=== PATIENT | male | born 1965 | race Caucasian/White ===

== ENCOUNTER 2020-12-06 23:27 | Observation (INO) ==
[2020-12-07] MEDS ORDERED: Ipratropium/Albuterol Neb 3 ML IH ONE (01:13)
[2020-12-07] MEDS ORDERED: *HR* HYDROcodone/Acet 5/325 mg TABLET PO ONE (01:21)
[2020-12-07] MEDS ORDERED: 0.9 % Sodium Chloride 1,000 ML IVC ONE (01:23)
[2020-12-07 01:24] LABS: INR 1.1; Prothrombin Time 13.2 Seconds (9.4-12.1)
[2020-12-07 01:27] LABS: Activated Partial Thrombo Time 30.7 Seconds (26.0-36.0)
[2020-12-07 01:38] LABS: Bilirubin,Urine Negative (Negative); Blood,Urine Trace (Negative); Clarity,Urine Turbid (Clear); Color,Urine Yellow (Yellow); Glucose,Urine (UA) Normal (Normal); Hyaline Casts,Urine Few per lpf (None Seen); Ketones,Urine Negative (Negative); Leukocyte Esterase,Urine Negative (Negative); Mucus,Urine Many per lpf (None-Few); Nitrite,Urine Negative (Negative); PH,Urine 5.5 pH Units (5.0-8.0); Protein,Urine Trace mg/dL (Neg-Trace); RBC,Urine 0-3 per hpf (0-3); Specific Gravity,Urine 1.023 (1.010-1.025); Squamous Epithelial Cell,Urine Few per hpf (None-Few); Urobilinogen,Urine Normal (Normal); WBC,Urine 0-3 per hpf (0-3)
[2020-12-07 02:23] LABS: Adenovirus Not Detected (Not Detect); Bordetella Pertussis Not Detected (Not Detect); Chlamydophila pneumoniae Not Detected (Not Detect); Coronavirus 229E Not Detected (Not Detect); Coronavirus HKU1 Not Detected (Not Detect); Coronavirus NL63 Not Detected (Not Detect); Coronavirus OC43 Not Detected (Not Detect); Human Metapneumovirus Not Detected (Not Detect); Human Rhinovirus/Enterovirus DETECTED (Not Detect); Influenza A Subtype 2009 H1 Not Detected (Not Detect); Influenza B Not Detected (Not Detect); Mycoplasma pneumoniae Not Detected (Not Detect); Parainfluenza Virus 1 Not Detected (Not Detect); Parainfluenza Virus 2 Not Detected (Not Detect); Parainfluenza Virus 3 Not Detected (Not Detect); Parainfluenza Virus 4 Not Detected (Not Detect); Respiratory Syncytial Virus Not Detected (Not Detect); SARS-CoV-2 Not Detected (Not Detect)
[2020-12-07] MEDS ORDERED: Naloxone 0.4 MG/ML INJ IVP PRN (03:38)
[2020-12-07] MEDS ORDERED: Ondansetron 4 MG/2 ML VIAL IVP PRN (03:38)
[2020-12-07] MEDS ORDERED: Melatonin 3 MG TABLET PO PRN (03:38)
[2020-12-07 05:48] LABS: Basophils # 0.1 K/mcL (0.0-0.2); Basophils % 0.5 %; Eosinophils # 0.8 K/mcL (0.0-0.6); Eosinophils % 6.9 %; Hematocrit 37.9 % (37.5-50.1); Hemoglobin 12.5 g/dL (12.9-16.9); Immature Granulocytes % 0.4 % (0-4); Lymphocytes # 2.2 K/mcL (0.6-4.6); Lymphocytes % 19.2 %; Mean Corpuscular Hemoglobin 29.8 pg (28.0-33.3); Mean Corpuscular Volume 90.2 fL (83.0-100.0); Mean Platelet Volume 9.8 fL (9.4-12.4); Monocytes # 0.8 K/mcL (0.0-1.3); Monocytes % 7.1 %; Neutrophils # 7.5 K/mcL (1.6-8.9); Platelet Count 442 K/mcL (140-400); Red Cell Distribution Width 13.6 % (11.5-14.5); Segmented Neutrophils % 65.9 %; White Blood Count 11.4 K/mcL (4.3-11.1)
[2020-12-07 05:55] LABS: INR 1.1
[2020-12-07 05:58] LABS: Activated Partial Thrombo Time 29.5 Seconds (26.0-36.0)
[2020-12-07 06:16] LABS: Alanine Aminotransferase 15 Units/L (7-52); Albumin 3.3 g/dL (3.5-5.7); Alkaline Phosphatase 67 Units/L (34-104); Aspartate Amino Transferase 13 Units/L (13-39); BUN/Creatinine Ratio 19 (6-26); Bilirubin,Total 0.6 mg/dL (0.3-1.0); Blood Urea Nitrogen 19 mg/dL (6-20); Calcium 8.5 mg/dL (8.6-10.3); Carbon Dioxide 24 mEq/L (23-29); Chloride 107 mEq/L (98-107); Globulin 3.4 g/dL (2.4-3.5); Glucose 119 mg/dL (70-105); Magnesium 2.2 mg/dL (1.6-2.6); Osmolality,Calculated 289 (280-300); Potassium 3.7 mEq/L (3.5-5.1); Sodium 138 mEq/L (136-145); Total Protein 6.7 g/dL (6.4-8.9); Troponin I < 0.03 ng/mL (< 0.04); eGFR For African Americans > 60 (> 60); eGFR For Non-African Americans > 60 (> 60)
[2020-12-07] MEDS ORDERED: Benzonatate 100 MG CAPSULE PO PRN (07:00)
[2020-12-07] MEDS ORDERED: Ipratropium/Albuterol Neb 3 ML IH PRN (08:35)
[2020-12-07] MEDS: levoFLOXacin 750 MG/150 ML 750 MG/150 ML BAG IVPB SCH (13:01)
[2020-12-08] MEDS: levoFLOXacin 750 MG/150 ML 750 MG/150 ML BAG IVPB SCH (09:36)
[2020-12-08] MEDS: amLODIPine 5 MG TABLET PO SCH (09:36)
[2020-12-08] MEDS ORDERED: lisinopriL 20 MG TABLET PO SCH (12:30)
[2020-12-08] MEDS ORDERED: lisinopriL 20 MG TABLET PO ONE (12:32)
[2020-12-09 07:47] VITALS: BP 140/94
[2020-12-09] MEDS ORDERED: levoFLOXacin 750 MG TABLET PO SCH (09:00)
[2020-12-09] MEDS ORDERED: Lisinopril-HCTZ 20-12.5mg TABLET PO SCH (09:00)
[2020-12-09] MEDS: amLODIPine 5 MG TABLET PO SCH (10:16)
== END 2020-12-09 12:35 | disposition home or self-care (01) ==
LOC: 2NENU 23:27 → EMEROOARM 23:27 → SUATTDRO 12-07 02:30 → 2NENU 12-07 03:15
PROVIDERS: ADMIT Internal Medicine; ATTEND Internal Medicine